=== PATIENT | male | born 1985 | race Caucasian/White ===

== ENCOUNTER 2020-08-10 19:30 | Emergency (ER) | payer OTHER ==
[~2020-08-10] VITALS: Ht 177.8 cm; Wt 79.4 kg
[2020-08-10] MEDS ORDERED: AMOCLA875 PO (22:19)
== END 2020-08-10 22:32 | disposition home or self-care (01) ==
LOC: ER 19:30
DX: S41.152A Open bite of left upper arm, initial encounter (principal); Z23 Encounter for immunization; W54.0XXA Bitten by dog, initial encounter
CPT/HCPCS: 12002; 73090; 90471; 90714; 99283-25; A9270